=== PATIENT | female | born 1985 | race Caucasian/White ===

== ENCOUNTER → 2025-01-20 16:48 | Outpatient (CLI) | payer OTHER, SELFPAY ==
[2025-01-20 17:08] LABS: Add Manual Diff / Slide Review NO; Hematocrit 39.4 % (36-46); Hemoglobin 13.4 g/dL (12.0-16.0); Lymphocytes Absolute Auto 2300 /uL (1100-4500); Mean Corpuscular HGB Conc 34.1 % (30-36); Mean Corpuscular Hemoglobin 32.6 PG (26-34); Mean Corpuscular Volume 95.7 fL (80-100); Platelet Count 242 X10^3/uL (150-400)
[2025-01-20 17:21] LABS: Hemoglobin A1C% w Est Avg Glu 5.0 % (4.0-6.0)
[2025-01-20 17:34] LABS: HEMOLYSIS < 15 (0-50); Iron 112 ug/dL (37-170)
[2025-01-20 17:35] LABS: Alanine Aminotransferase 14 IU/L (<35); Albumin 4.8 g/dL (3.5-5.0); Albumin Globulin Ratio 1.8 (1.0-2.8); Alkaline Phosphatase 51 U/L (38-126); Blood Urea Nitrogen 18 mg/dL (7-17); Calcium 9.5 mg/dL (8.4-10.2); Carbon Dioxide 28 mmol/L (22-32); Chloride 98 mmol/L (98-107); Estimated Glomerular Filt Rate > 60 mL/min (>60); Globulin 2.7 g/dL (1.7-4.1); Glucose 97 mg/dL (70-99); HEMOLYSIS < 15 (0-50); Potassium 4.0 mmol/L (3.4-5.1); Sodium 136 mmol/L (137-145); Total Protein 7.5 g/dL (6.3-8.2)
[2025-01-20 17:45] LABS: Percent Iron Saturation 29 % (15-50); Total Iron Binding Capacity 385 ug/dL (265-497); Transferrin 352 mg/dL (206-381)
[2025-01-20 17:52] LABS: Free T4, Direct Thyroxine 1.01 ng/dL (0.78-2.19)
[2025-01-20 18:07] LABS: Thyroid Stimulating Hormone 2.11 uIU/mL (0.47-4.68)
[2025-01-22 05:09] LABS: CRP, High Sensitivity 1.53 mg/L (0.00-3.00)
[2025-01-26 00:39] LABS: Triiodothyronine T3 Reverse 20.5 ng/dL (.)
[2025-01-26 18:36] LABS: Antimyeloperoxidase Antibodies <0.2 units (0.0-0.9); Antiproteinase 3 Antibodies <0.2 units (0.0-0.9)
== END ==
PROVIDERS: PCP Family Medicine; Referring Provider Obstetrics & Gynecology; Visit Provider Obstetrics & Gynecology
DX: T83.32XA Displacement of intrauterine contraceptive device, initial encounter (principal); R53.83 Other fatigue
CPT/HCPCS: 36415; 80053; 83036; 83540; 83550; 84439; 84443; 84482; 85025; 85651; 86140; 86256; 86376; 86430

== ENCOUNTER → 2025-03-17 15:32 | Outpatient (CLI) | payer OTHER, SELFPAY ==
--- NOTE | 2025-03-17 15:34 | DI.RAD.S_ITS ---
PROCEDURE: XR HAND RT MIN 3V INDICATIONS: R thumb PIP pain, hx trauma TECHNIQUE: 3 views of the hand(s) acquired. COMPARISON: None. FINDINGS: Bones: No fractures or dislocations. Carpal bones are normally aligned. No suspicious bony lesions. Soft tissues: No suspicious soft tissue calcifications. IMPRESSION: No acute bony abnormality. Dictated by: Shanika Lazcano M.D. on 03/17/2025 at 21:43 Approved by: Shanika Lazcano M.D. on 03/17/2025 at 21:44
== END ==
PROVIDERS: PCP Family Medicine; Referring Provider Obstetrics & Gynecology; Visit Provider Obstetrics & Gynecology
DX: M79.644 Pain in right finger(s) (principal)
CPT/HCPCS: 73130

== ENCOUNTER → 2025-04-26 14:56 | Outpatient (CLI) | payer OTHER, SELFPAY ==
[2025-04-26 16:41] LABS: Follicle Stimulating Hormone 7.20 mIU/mL
[2025-04-26 20:09] LABS: Estradiol, Total 59.7 pg/mL
[2025-04-26 20:18] LABS: Ferritin 16 ng/mL (6-137)
[2025-04-26 20:32] LABS: Vitamin D 25 Hydroxy (D3) 39.1 ng/mL (30.0-100.0)
== END ==
PROVIDERS: PCP Family Medicine; Referring Provider Family Medicine; Visit Provider Obstetrics & Gynecology
DX: N95.1 Menopausal and female climacteric states (principal); R53.83 Other fatigue; F41.9 Anxiety disorder, unspecified; F32.A Depression, unspecified; G90.A Postural orthostatic tachycardia syndrome [POTS]
CPT/HCPCS: 36415; 82306; 82627; 82670; 82728; 83001; 83002; 84402; 84403